=== PATIENT | male | born 1940 | race Caucasian/White ===

== ENCOUNTER 2016-10-20 09:30 | Day surgery (SDC) | payer OTHER ==
[2016-10-14 13:23] VITALS: BMI 24.2
[2016-10-20] MEDS ORDERED: MIDAZOLAM HCL 2 MG/2 ML SINGLE DOSE VIAL ONE (10:37)
[2016-10-20] MEDS ORDERED: PROPOFOL 20 ML ONE (10:39)
[2016-10-20 13:15] VITALS: TEMP 97.8
[2016-10-20] MEDS ORDERED: LACTATED RINGERS SOLUTION 1,000 ML IV SCH (13:30)
[2016-10-20] MEDS ORDERED: ONDANSETRON 4 MG/2 ML VIAL IVPUSH PRN (13:54)
[2016-10-20] MEDS ORDERED: oxyCODONE HCL 5 MG TABLET PO PRN (13:54)
[2016-10-20 14:21] VITALS: BP 152/74; PULSE 66
--- NOTE | 2016-10-21 10:09 | OP ---
DATE OF OPERATION: 10/20/2016 PREOPERATIVE DIAGNOSIS: Left hand, wrist, forearm flexion contractures, severe, status post cerebrovascular accident. POSTOPERATIVE DIAGNOSIS: Left hand, wrist, forearm flexion contractures, severe, status post cerebrovascular accident. OPERATIVE PROCEDURE: 1. Left flexor digitorum superficialis to flexor digitorum profundus tendon transfer and lengthening in the forearm to index finger. 2. Left flexor digitorum superficialis to flexor digitorum profundus tendon transfer and lengthening in the long finger. 3. Left flexor digitorum superficialis to flexor digitorum profundus tendon transfer and lengthening in the ring finger. 4. Left flexor digitorum superficialis to flexor digitorum profundus tendon transfer and lengthening in the small finger. 5. Left flexor pollicis longus tendon lengthening. SURGEON: Peter Quiroz MD VEHICLE CALIBRATION ENGINEER: ZA Mora ANESTHESIA: General. COMPLICATIONS: None. ESTIMATED BLOOD LOSS: Minimal. INDICATIONS FOR PROCEDURE: The patient is a 76-year-old male with history of cerebrovascular accident causing left handed severe contractures in the fingers, which were causing hygienic issues and difficulty for the patient. He was indicated for operative treatment. The risks, benefits, and alternatives were discussed with the patient and at length, and proper informed consent was obtained. PROCEDURE: After proper identification of the patient and the correct operative site, the patient was brought to the operating room and placed supine on the operating room table. All prominences were well padded. General anesthesia was provided by the anesthesiologist adequate for procedure. Left upper extremity was prepped and draped in the usual sterile fashion. Well-padded tourniquet was placed with a sterile prep. Esmarch bandage used to exsanguinate the left upper extremity. Tourniquet inflated to 250 mmHg. A curvilinear incision was made over the volar aspect of the left forarm. Incision was taken sharply through the skin with blunt and sharp dissection of subcutaneous tissues. Median nerve was identified and carefully protected throughout the procedure. This was done after the antebrachial fascia was divided. At this point, the flexor digitorum superficialis tendons to the index, long, ring, and small fingers were identified and were sutured together at the distal aspect. They were then divided distal to the sutures. These were then elevated, and the profundus tendons were identified to the index, long, ring, and small fingers. These were sutured together just distal to the musculotendinous junctions of these tendons, and then divided at the musculotendinous junction. The fingers were then extended, and the tendons were lengthened. Then, the superficialis tendon proximal stump was sutured to the profundus tendon distally. The flexor pollicis longus tendon was also then divided at the musculotendinous junction and sutured to the tendons that had previously been approximated. This allowed all the fingers to be opened out of the palm. Wound was irrigated with saline and repaired with 4-0 Vicryl and 4-0 nylon sutures. Sterile dressings were applied. Splint was placed with the fingers extended. There were no skin wounds. Joy Bruno, the product development assistant, was integral throughout this procedure. The procedure could not have been performed without a skilled operative product development assistant. Brice [id number]
== END 2016-10-20 14:35 | disposition home or self-care (01) ==
LOC: FASU 09:30
PROVIDERS: ATTEND Orthopaedic Surgery Hand Surgery
PROC: 0L880ZZ Division of Left Hand Tendon, Open Approach (ICD-10-PCS; 2016-10-20)
PROC: 0LX60ZZ Transfer Left Lower Arm and Wrist Tendon, Open Approach (ICD-10-PCS; principal; 2016-10-20 11:44)
DX: M24.542 Contracture, left hand (principal); M24.532 Contracture, left wrist; M21.232 Flexion deformity, left wrist; I69.398 Other sequelae of cerebral infarction
CPT/HCPCS: 87081; 94760

== ENCOUNTER 2017-06-27 06:28 | Day surgery (SDC) | payer OTHER ==
[2017-06-21 13:15] VITALS: BMI 24.0
[2017-06-27] MEDS ORDERED: LIDOCAINE 1% P/F 10 MG/ML VIAL ONE (07:06)
[2017-06-27] MEDS ORDERED: TETRACAINE 0.5% OPHTH SOLN 2 ML BOTTLE ONE ×2 (07:06→07:09)
[2017-06-27] MEDS ORDERED: BSS (NA/CA/MG/K) BALANCED SALT SOLUTION OPHTH SOLN 15 ML BOTTLE ONE (07:07)
[2017-06-27] MEDS ORDERED: CARBACHOL 0.01% INTRA-OCULAR 1.5 ML VIAL ONE (07:07)
[2017-06-27] MEDS ORDERED: ACETYLCHOLINE 1:100 INTRA-OCUL 20 MG/2 ML KIT ONE (07:07)
[2017-06-27] MEDS ORDERED: NEO/POLYMYX B SULF/DEXAMETH OPHTHALMIC 5ML BOTTLE ONE (07:07)
[2017-06-27] MEDS ORDERED: LIDOCAINE HCL 2% JELLY 10 ML CARTRIDGE ONE (07:08)
[2017-06-27] MEDS: CYCLOPENTOLATE 2% OPHTH SOLN 2 ML BOTTLE ONE ×3 (07:20→07:30)
[2017-06-27] MEDS: PHENYLEPHRINE 2.5% OPHTH SOLN 15 ML BOTTLE ONE ×3 (07:20→07:30)
[2017-06-27] MEDS: TROPICAMIDE 1% OPHTH SOLN 15 ML BOTTLE ONE ×3 (07:20→07:30)
[2017-06-27] MEDS: CIPROFLOXACIN 0.3% EYE DROPS 5 ML BOTTLE ONE ×3 (07:20→07:30)
[2017-06-27] MEDS ORDERED: EPINEPHrine 1:1,000 1 MG/1 ML - 30ML VIAL (INJECTION) ONE (07:27)
[2017-06-27] MEDS ORDERED: MIDAZOLAM HCL 2 MG/2 ML SINGLE DOSE VIAL ONE (08:00)
[2017-06-27 08:37] VITALS: TEMP 97.5
[2017-06-27 09:06] VITALS: BP 140/72; PULSE 65
--- NOTE | 2017-06-27 11:21 | OP ---
DATE OF OPERATION: 06/27/2017 OPERATIVE PROCEDURE: Lens phacoemulsification with posterior chamber intraocular lens placement, right eye PREOPERATIVE DIAGNOSIS: Visually significant cataract of right eye. POSTOPERATIVE DIAGNOSIS: Visually significant cataract of right eye. SURGEON: Josh Jones M.D. ANESTHESIA: MAC PROCEDURE: The patient was brought to the operating room and placed under monitored anesthesia care by Anesthesia. A drop of Tetracaine was then placed over the right eye. The patient was then prepped and draped in the usual sterile manner. A speculum was then placed over the right eye. The eye was then well irrigated with copious amounts of BSS (balanced salt solution). The operating microscope was then moved into position. A paracentesis was performed using a 15 degree blade. At this point 0.5 mL of 1% preservative free-lidocaine was injected into the anterior chamber. Amvisc plus was then injected into the anterior chamber. A clear corneal incision was then formed using a 2.2 mm keratome. A capsulorrhexis was then performed in a continuous circular fashion beginning with a cystotome completed with an Utratas forceps. Hydrodissection was then performed using BSS on a cannula. The phaco probe was then introduced through the corneal wound and the cataract was removed using the phaco chop technique. Approximately 3 seconds of absolute phaco time was used. The remaining cortex was then removed using irrigation and aspiration with an I/A probe. The capsule was then filled with regular Amvisc and the capsule was noted to be intact. A previously selected foldable posterior chamber intraocular lens was then injected into the capsule through the corneal wound using a lens injector. It was then dialed into position using a Sinskey hook. The Amvisc was then removed using irrigation and aspiration. Miostat was then injected through the paracentesis to constrict the pupil. The paracentesis and corneal wound were then hydrated and noted to be water tight. A drop of Maxitrol was then placed over the eye. The speculum was removed and clear shield was taped over the eye. The patient tolerated the procedure well and there were no surgical complications. The patient was asked to follow up in my office the next day. JOSH JONES M.D. [id number]
== END 2017-06-27 09:10 | disposition home or self-care (01) ==
LOC: FASU 06:28
PROVIDERS: ATTEND Ophthalmology
PROC: 08RJ3JZ Replacement of Right Lens with Synthetic Substitute, Percutaneous Approach (ICD-10-PCS; principal; 2017-06-27 08:11)
DX: H26.8 Other specified cataract (principal)
CPT/HCPCS: 82962

== ENCOUNTER 2022-04-19 11:41 | Inpatient (IN) | payer OTHER ==
[2022-04-19 13:55] LABS: EPI CELLS 18 /uL (0-25.1); HYALINE CASTS 2 /uL (0-3.1); PH,URINE 5.5 (5.0-8.0); URINE APPEARANCE CLOUDY; URINE BACTERIA 23 /uL (0-1359); URINE BILIRUBIN NEGATIVE (NEGATIVE); URINE COLOR DK YELLOW; URINE GLUCOSE (UA) NEGATIVE (NEGATIVE); URINE KETONE TRACE (NEGATIVE); URINE LEUK ESTERASE NEGATIVE (NEGATIVE); URINE NITRITE NEGATIVE (NEGATIVE); URINE PROTEIN 4+ (NEGATIVE); URINE RBC 33 /uL (0-23.9); URINE WBC 28 /uL (0-25.8)
[2022-04-19 13:58] LABS: BASO % 0.2 % (0-2.0); HEMATOCRIT 47.7 % (35.4-49); HEMOGLOBIN 16.2 GM/dL (11.7-16.9); LYMPH % 3.5 % (8-40); MCH 29.7 pg (25.7-33.7); MEAN CELL VOLUME 87.3 fl (80-96); MEAN PLT VOLUME 9.4 fl (7.5-11.1); MONO % 9.7 % (3.8-10.2); NEUT % 86.6 % (42.8-82.8); PLATELET COUNT 237 10^3/uL (134-434); RBC 5.46 M/mm3 (4.00-5.60); RDW 14.2 % (11.9-15.9); WHITE BLOOD COUNT 8.7 K/mm3 (4.0-10.0)
[2022-04-19 14:12] LABS: CHLORIDE 100 mmol/L (98-107); SODIUM 140 mmol/L (136-145)
[2022-04-19 14:14] LABS: ANION GAP 15 MMOL/L (8-16); CALCIUM 9.5 mg/dL (8.5-10.1); CO2 25 mmol/L (21-32)
[2022-04-19 14:15] LABS: BLOOD UREA NITROGEN 35.3 mg/dL (7-18)
[2022-04-19 14:16] LABS: GLUCOSE,RANDOM 62 mg/dL (74-106)
[2022-04-19 14:18] LABS: SGOT/AST 103 U/L (15-37); SGPT/ALT 38 U/L (13-61)
[2022-04-19 14:19] LABS: BILIRUBIN,TOTAL 0.4 mg/dL (0.2-1); CREATININE 1.7 mg/dL (0.55-1.3); TOT PROT 7.1 g/dl (6.4-8.2)
[2022-04-19 14:20] LABS: ALK PHOS 79 U/L (45-117)
[2022-04-19] MEDS ORDERED: ACETAMINOPHEN 1000 MG/100 ML BAG IVPB ONE (15:06)
[2022-04-19] MEDS ORDERED: ACETAMINOPHEN INJECTION 100 ML IVPB ONE (15:06)
[2022-04-19] MEDS ORDERED: SODIUM CHLORIDE 0.9% 500 ML INFUS.BAG IV ONE (15:06)
[2022-04-19] MEDS ORDERED: ASPIRIN 81 MG CHEWABLE TABLETS PO ONE (15:06)
[2022-04-19] MEDS ORDERED: ASPIRIN 81 MG CHEWABLE TABLETS ONE ×2 (15:06→15:07)
[2022-04-19] MEDS ORDERED: ASPIRIN 300 MG SUPP.RECT PR ONE (15:20)
[2022-04-19] MEDS ORDERED: ASPIRIN 300 MG SUPP.RECT RC ONE (15:33)
[2022-04-19] MEDS ORDERED: DEXTROSE 50%-WATER - 25 GM/50 ML VIAL IVPUSH ONE ×4 (16:59→22:22)
[2022-04-19] MEDS ORDERED: DEXTROSE 50%-WATER 25 GM/50 ML DISP.SYRIN ONE ×2 (17:05→20:40)
[2022-04-19] MEDS ORDERED: DEXAMETHASONE SOD PHOSPHATE 10 MG/1 ML VIAL IVPUSH ONE (20:19)
[2022-04-19] MEDS ORDERED: DEXAMETHASONE SOD PHOSPHATE 10 MG/1 ML VIAL ONE (20:37)
[2022-04-19] MEDS ORDERED: DEXTROSE 5%-WATER - 1,000 ML IV SCH ×2 (21:00→22:23)
[2022-04-19 21:42] LABS: MAGNESIUM 2.1 mg/dL (1.8-2.4)
[2022-04-19 21:50] LABS: LDH 337 U/L (87-246)
[2022-04-19] MEDS ORDERED: MUPIROCIN 2% TOPICAL OINTMENT FOR DECOLONIZATION NS SCH (22:30)
[2022-04-20 08:05] LABS: HEMATOCRIT 41.4 % (35.4-49); HEMOGLOBIN 14.3 GM/dL (11.7-16.9); MCH 29.7 pg (25.7-33.7); MCHC 34.6 g/dl (32.0-35.9); MEAN PLT VOLUME 9.3 fl (7.5-11.1); PLATELET COUNT 211 10^3/uL (134-434); RBC 4.81 M/mm3 (4.00-5.60); RDW 14.3 % (11.9-15.9); WHITE BLOOD COUNT 6.3 K/mm3 (4.0-10.0)
[2022-04-20 08:35] LABS: CALCIUM 8.6 mg/dL (8.5-10.1)
[2022-04-20 08:37] LABS: ALBUMIN 2.6 g/dl (3.4-5.0); BLOOD UREA NITROGEN 38.5 mg/dL (7-18)
[2022-04-20 08:39] LABS: CREATININE 1.4 mg/dL (0.55-1.3)
[2022-04-20 08:41] LABS: BILIRUBIN,TOTAL 0.3 mg/dL (0.2-1); TOT PROT 6.2 g/dl (6.4-8.2)
[2022-04-20] MEDS ORDERED: DEXTROSE 5%-WATER - 1,000 ML IV SCH (09:35)
[2022-04-20 09:58] LABS: ANISOCYTOSIS 0; HELMET CELLS 0; HOWELL-JOLLY BODIES 0; MACROCYTOSIS 0; OVALOCYTE 0; ROULEAU 0; SICKELED CELLS 0; TARGET CELLS 0; TEAR DROP CELLS 0; TOXIC GRANULATION 0
[2022-04-20] MEDS ORDERED: DEXAMETHASONE SOD PHOSPHATE 4 MG/1 ML VIAL IVPUSH SCH ×2 (10:00)
[2022-04-20] MEDS: ENOXAPARIN NA (PORCINE) 30 MG/0.3 ML DISP.SYRIN SQ SCH (15:39)
[2022-04-20] MEDS ORDERED: INSULIN SLIDING SCALE (NOVOLOG) 1 VIAL SQ SCH (16:30)
[2022-04-20] MEDS: INSULIN SLIDING SCALE (NOVOLOG) 1 VIAL SQ SCH ×2 (18:05→21:22)
[2022-04-20] MEDS ORDERED: CHLORHEXIDINE GLUCONATE 4% CLEANSER FOR DECOLONIZATION TP SCH (22:00)
[2022-04-21] MEDS: INSULIN SLIDING SCALE (NOVOLOG) 1 VIAL SQ SCH ×4 (06:37→21:48)
[2022-04-21] MEDS ORDERED: ENOXAPARIN NA (PORCINE) 30 MG/0.3 ML DISP.SYRIN SQ SCH (10:00)
[2022-04-21] MEDS: DEXAMETHASONE SOD PHOSPHATE 4 MG/1 ML VIAL IVPUSH SCH (10:29)
[2022-04-21] MEDS: ENOXAPARIN NA (PORCINE) 30 MG/0.3 ML DISP.SYRIN SQ SCH (10:29)
[2022-04-21 16:09] VITALS: BMI 23.5
[2022-04-22] MEDS: INSULIN SLIDING SCALE (NOVOLOG) 1 VIAL SQ SCH ×4 (06:34→22:17)
[2022-04-22 08:24] LABS: ALBUMIN 2.4 g/dl (3.4-5.0); BLOOD UREA NITROGEN 42.4 mg/dL (7-18); CALCIUM 8.9 mg/dL (8.5-10.1)
[2022-04-22 08:28] LABS: BILIRUBIN,TOTAL 0.4 mg/dL (0.2-1); CREATININE 1.3 mg/dL (0.55-1.3)
[2022-04-22] MEDS: DEXAMETHASONE SOD PHOSPHATE 4 MG/1 ML VIAL IVPUSH SCH (10:16)
[2022-04-22] MEDS: ENOXAPARIN NA (PORCINE) 30 MG/0.3 ML DISP.SYRIN SQ SCH (10:17)
[2022-04-22] MEDS: ASPIRIN COATED 81 MG TABLET.EC PO SCH (12:29)
[2022-04-22] MEDS ORDERED: amLODIPine BESYLATE 5 MG TABLET (FP) PO ONE (22:56)
[2022-04-23] MEDS: INSULIN SLIDING SCALE (NOVOLOG) 1 VIAL SQ SCH ×4 (06:41→21:46)
[2022-04-23] MEDS: DEXAMETHASONE SOD PHOSPHATE 4 MG/1 ML VIAL IVPUSH SCH (10:54)
[2022-04-23] MEDS: CLOPIDOGREL BISULFATE 75 MG TABLET (FP) PO SCH (10:55)
[2022-04-23] MEDS: ENOXAPARIN NA (PORCINE) 30 MG/0.3 ML DISP.SYRIN SQ SCH (10:55)
[2022-04-23] MEDS: ASPIRIN COATED 81 MG TABLET.EC PO SCH (10:55)
[2022-04-23] MEDS: RAMIPRIL 5 MG CAPSULE PO SCH (10:56)
[2022-04-23] MEDS: metoPROLOL SUCCINATE 25 MG TAB.SR.24H (FP) PO SCH (10:56)
[2022-04-23] MEDS ORDERED: INSULIN (NOVOLOG) ASPART 100 UNITS/ML 10ML VIAL ONE ×2 (12:21→21:38)
[2022-04-23] MEDS ORDERED: metoPROLOL SUCCINATE 25 MG TAB.SR.24H (FP) PO ONE (13:50)
[2022-04-24] MEDS: INSULIN SLIDING SCALE (NOVOLOG) 1 VIAL SQ SCH ×5 (06:27→21:18)
[2022-04-24] MEDS: RAMIPRIL 5 MG CAPSULE PO SCH (09:36)
[2022-04-24] MEDS: ASPIRIN COATED 81 MG TABLET.EC PO SCH (09:36)
[2022-04-24] MEDS: DEXAMETHASONE SOD PHOSPHATE 4 MG/1 ML VIAL IVPUSH SCH (09:36)
[2022-04-24] MEDS: CLOPIDOGREL BISULFATE 75 MG TABLET (FP) PO SCH (09:36)
[2022-04-24] MEDS: metoPROLOL SUCCINATE 25 MG TAB.SR.24H (FP) PO SCH (09:36)
[2022-04-24] MEDS: ENOXAPARIN NA (PORCINE) 30 MG/0.3 ML DISP.SYRIN SQ SCH (09:36)
[2022-04-24] MEDS ORDERED: INSULIN (NOVOLOG) ASPART 100 UNITS/ML 10ML VIAL ONE ×2 (10:52→21:14)
[2022-04-25] MEDS: INSULIN SLIDING SCALE (NOVOLOG) 1 VIAL SQ SCH ×4 (06:25→23:13)
[2022-04-25] MEDS: RAMIPRIL 5 MG CAPSULE PO SCH (10:27)
[2022-04-25] MEDS: ASPIRIN COATED 81 MG TABLET.EC PO SCH (10:27)
[2022-04-25] MEDS: DEXAMETHASONE SOD PHOSPHATE 4 MG/1 ML VIAL IVPUSH SCH (10:28)
[2022-04-25] MEDS: CLOPIDOGREL BISULFATE 75 MG TABLET (FP) PO SCH (10:28)
[2022-04-25] MEDS: ENOXAPARIN NA (PORCINE) 30 MG/0.3 ML DISP.SYRIN SQ SCH (10:30)
[2022-04-25] MEDS ORDERED: metoPROLOL SUCCINATE 25 MG TAB.SR.24H (FP) PO SCH (11:40)
[2022-04-25] MEDS ORDERED: INSULIN (NOVOLOG) ASPART 100 UNITS/ML 10ML VIAL ONE (12:08)
[2022-04-25] MEDS ORDERED: INSULIN (LEVEMIR) 100 UNITS/ML UNITS SQ ONE (17:04)
[2022-04-26] MEDS: INSULIN SLIDING SCALE (NOVOLOG) 1 VIAL SQ SCH ×4 (06:47→21:03)
[2022-04-26] MEDS: DEXAMETHASONE SOD PHOSPHATE 4 MG/1 ML VIAL IVPUSH SCH (10:03)
[2022-04-26] MEDS: ENOXAPARIN NA (PORCINE) 30 MG/0.3 ML DISP.SYRIN SQ SCH (10:03)
[2022-04-26] MEDS: ASPIRIN COATED 81 MG TABLET.EC PO SCH (10:03)
[2022-04-26] MEDS: CLOPIDOGREL BISULFATE 75 MG TABLET (FP) PO SCH (10:03)
[2022-04-26] MEDS: RAMIPRIL 5 MG CAPSULE PO SCH (10:04)
[2022-04-26] MEDS ORDERED: INSULIN (NOVOLOG) ASPART 100 UNITS/ML 10ML VIAL ONE ×2 (11:53→20:09)
[2022-04-26 16:45] LABS: CALCIUM 8.9 mg/dL (8.5-10.1)
[2022-04-26 16:46] LABS: ALBUMIN 2.4 g/dl (3.4-5.0); BLOOD UREA NITROGEN 39.1 mg/dL (7-18)
[2022-04-26 16:49] LABS: CREATININE 1.4 mg/dL (0.55-1.3)
[2022-04-26 16:51] LABS: BILIRUBIN,TOTAL 0.3 mg/dL (0.2-1)
[2022-04-27] MEDS ORDERED: INSULIN (NOVOLOG) ASPART 100 UNITS/ML 10ML VIAL ONE (05:53)
[2022-04-27] MEDS: INSULIN SLIDING SCALE (NOVOLOG) 1 VIAL SQ SCH ×4 (08:00→21:40)
[2022-04-27] MEDS: CLOPIDOGREL BISULFATE 75 MG TABLET (FP) PO SCH (10:08)
[2022-04-27] MEDS: DEXAMETHASONE SOD PHOSPHATE 4 MG/1 ML VIAL IVPUSH SCH (10:08)
[2022-04-27] MEDS: ENOXAPARIN NA (PORCINE) 30 MG/0.3 ML DISP.SYRIN SQ SCH (10:08)
[2022-04-27] MEDS: RAMIPRIL 5 MG CAPSULE PO SCH (10:08)
[2022-04-27] MEDS: ASPIRIN COATED 81 MG TABLET.EC PO SCH (10:20)
[2022-04-27 10:34] VITALS: RESP 18
[2022-04-27] MEDS: INSULIN (LEVEMIR) 100 UNITS/ML UNITS SQ SCH (21:41)
[2022-04-28] MEDS: INSULIN SLIDING SCALE (NOVOLOG) 1 VIAL SQ SCH ×4 (06:28→21:31)
[2022-04-28] MEDS: ASPIRIN COATED 81 MG TABLET.EC PO SCH (11:22)
[2022-04-28] MEDS: RAMIPRIL 5 MG CAPSULE PO SCH (11:23)
[2022-04-28] MEDS: DEXAMETHASONE SOD PHOSPHATE 4 MG/1 ML VIAL IVPUSH SCH (11:23)
[2022-04-28] MEDS: CLOPIDOGREL BISULFATE 75 MG TABLET (FP) PO SCH (11:25)
[2022-04-28 20:15] VITALS: BP 119/57; PULSE 65; TEMP 97.3
[2022-04-28] MEDS ORDERED: INSULIN (NOVOLOG) ASPART 100 UNITS/ML 10ML VIAL ONE (21:23)
[2022-04-28] MEDS: INSULIN (LEVEMIR) 100 UNITS/ML UNITS SQ SCH (21:33)
[2022-04-29] MEDS: INSULIN SLIDING SCALE (NOVOLOG) 1 VIAL SQ SCH (06:15)
[2022-04-29] MEDS: ASPIRIN COATED 81 MG TABLET.EC PO SCH (10:03)
[2022-04-29] MEDS: CLOPIDOGREL BISULFATE 75 MG TABLET (FP) PO SCH (10:05)
[2022-04-29] MEDS: RAMIPRIL 5 MG CAPSULE PO SCH (10:05)
== END 2022-04-29 11:09 | DRG 177 ==
LOC: JER 11:41 → JERBED 16:32 → JICU 23:56 → J6S 04-22 23:36
PROVIDERS: ADMIT Internal Medicine; ATTEND Internal Medicine
DX: U07.1 COVID-19 (principal); I21.4 Non-ST elevation (NSTEMI) myocardial infarction; G81.94 Hemiplegia, unspecified affecting left nondominant side; I24.8 Other forms of acute ischemic heart disease; N17.9 Acute kidney failure, unspecified; F03.90 Unspecified dementia, unspecified severity, without behavioral disturbance, psychotic disturbance, mood disturbance, and anxiety; E11.649 Type 2 diabetes mellitus with hypoglycemia without coma; R29.6 Repeated falls; I25.119 Atherosclerotic heart disease of native coronary artery with unspecified angina pectoris; E78.00 Pure hypercholesterolemia, unspecified; H91.93 Unspecified hearing loss, bilateral; I12.9 Hypertensive chronic kidney disease with stage 1 through stage 4 chronic kidney disease, or unspecified chronic kidney disease; E11.22 Type 2 diabetes mellitus with diabetic chronic kidney disease; N18.9 Chronic kidney disease, unspecified; Z95.5 Presence of coronary angioplasty implant and graft
CPT/HCPCS: 0241U-QW; 36415; 70450-TC; 71045-TC-FY; 80053; 81003; 82728; 82962; 83615; 83735; 84484; 85025; 86140; 87081; 87086; 93005; 93010; 97116-GP; 97161-GP; 99291; C9803-CS; J1100; U0003; U0005

== ENCOUNTER 2022-05-04 14:48 | Inpatient (IN) | payer OTHER ==
[2022-05-04] MEDS ORDERED: SODIUM CHLORIDE 0.9% 500 ML INFUS.BAG IV ONE ×2 (15:54→19:21)
[2022-05-04 16:30] LABS: BASO % 0.3 % (0-2.0); EOS % 0.1 % (0-4.5); HEMATOCRIT 45.6 % (35.4-49); HEMOGLOBIN 14.4 GM/dL (11.7-16.9); LYMPH % 3.9 % (8-40); MCH 28.2 pg (25.7-33.7); MCHC 31.6 g/dl (32.0-35.9); MEAN CELL VOLUME 89.2 fl (80-96); MEAN PLT VOLUME 9.8 fl (7.5-11.1); NEUT % 89.7 % (42.8-82.8); PLATELET COUNT 272 10^3/uL (134-434); RDW 15.4 % (11.9-15.9); WHITE BLOOD COUNT 16.5 K/mm3 (4.0-10.0)
[2022-05-04 16:32] LABS: VENOUS BASE EXCESS -9.6 mmol/L (-2-2); VENOUS O2 SATURATION 53.2 % (70-80); VENOUS PCO2 40.3 mmHg (38-52); VENOUS PH 7.247 (7.310-7.410)
[2022-05-04 16:37] LABS: INR 1.61 (0.83-1.09); PROTHROMBIN TIME (PATIENT) 18.6 SEC (9.7-13.0)
[2022-05-04 16:40] LABS: ACTIVATED PTT 31.6 SECONDS (25.2-36.5)
[2022-05-04] MEDS ORDERED: CEFEPIME HCL/D5W 1 GM/50 ML BAG IVPB ONE (16:45)
[2022-05-04] MEDS ORDERED: VANCOMYCIN 1 GM in D5W (PRE-DOCKED) 1,000 MG/250 ML IVPB ONE (16:46)
[2022-05-04 17:02] LABS: CHLORIDE 107 mmol/L (98-107); SODIUM 144 mmol/L (136-145)
[2022-05-04] MEDS ORDERED: CEFEPIME 1 GM/100 ML BAG IVPB ONE (17:02)
[2022-05-04] MEDS ORDERED: VANCOMYCIN/WATER FOR INJ (PEG) 1,000 MG/200 ML BAG IVPB ONE (17:02)
[2022-05-04 17:03] LABS: CALCIUM 8.8 mg/dL (8.5-10.1)
[2022-05-04 17:04] LABS: ANION GAP 22 MMOL/L (8-16); CO2 15 mmol/L (21-32); GLUCOSE,RANDOM 300 mg/dL (74-106)
[2022-05-04 17:07] LABS: CREATININE 4.2 mg/dL (0.55-1.3); SGOT/AST 302 U/L (15-37); SGPT/ALT 196 U/L (13-61)
[2022-05-04] MEDS ORDERED: SODIUM CHLORIDE 1,000 ML IV ONE (17:07)
[2022-05-04 17:09] LABS: BILIRUBIN,TOTAL 0.7 mg/dL (0.2-1); TOT PROT 6.6 g/dl (6.4-8.2)
[2022-05-04 17:14] LABS: LACTIC ACID 8.2 mmol/L (0.4-2.0)
[2022-05-04 17:14] LABS: ALBUMIN 1.8 g/dl (3.4-5.0); ALK PHOS 125 U/L (45-117); BLOOD UREA NITROGEN 111.4 mg/dL (7-18)
[2022-05-04 17:42] LABS: EPI CELLS 3 /uL (0-25.1); HYALINE CASTS 1809 /uL (0-3.1); PH,URINE >= 9.0 (5.0-8.0); URINE APPEARANCE TURBID; URINE BACTERIA 1505 /uL (0-1359); URINE BILIRUBIN NEGATIVE (NEGATIVE); URINE COLOR RED; URINE GLUCOSE (UA) NEGATIVE (NEGATIVE); URINE KETONE Error (NEGATIVE); URINE LEUK ESTERASE NEGATIVE (NEGATIVE); URINE NITRITE POSITIVE (NEGATIVE); URINE PROTEIN NEGATIVE (NEGATIVE); URINE UROBILINOGEN 0.2 mg/dL (0.2-1.0)
[2022-05-04 19:05] LABS: URINE RBC 310.4 /uL (0-23.9); URINE WBC 952.2 /uL (0-25.8)
[2022-05-04] MEDS ORDERED: PIPERACILLIN/TAZOB 2.25 GM 2.25 GM in DEXTROSE 5%-WATER - 50 ML IVPB SCH (22:30)
[2022-05-04] MEDS ORDERED: SODIUM CHLORIDE 1,000 ML IV SCH (22:30)
[2022-05-04] MEDS: PIPERACILLIN/TAZOB 2.25 GM 2.25 GM in DEXTROSE 5%-WATER - 50 ML IVPB SCH (23:22)
[2022-05-04] MEDS: CHLORHEXIDINE GLUCONATE 4% CLEANSER FOR DECOLONIZATION TP SCH (23:22)
[2022-05-05] MEDS: INSULIN SLIDING SCALE (NOVOLOG) 1 VIAL SQ SCH ×5 (00:03→23:12)
[2022-05-05] MEDS: MUPIROCIN 2% TOPICAL OINTMENT FOR DECOLONIZATION NS SCH ×3 (00:05→22:05)
[2022-05-05 00:12] LABS: BASO % 0.1 % (0-2.0); EOS % 0.1 % (0-4.5); HEMATOCRIT 42.2 % (35.4-49); HEMOGLOBIN 13.4 GM/dL (11.7-16.9); LYMPH % 4.5 % (8-40); MCH 28.4 pg (25.7-33.7); MCHC 31.6 g/dl (32.0-35.9); MEAN CELL VOLUME 89.9 fl (80-96); MEAN PLT VOLUME 9.2 fl (7.5-11.1); MONO % 6.2 % (3.8-10.2); NEUT % 89.1 % (42.8-82.8); PLATELET COUNT 171 10^3/uL (134-434); RDW 15.5 % (11.9-15.9); WHITE BLOOD COUNT 11.7 K/mm3 (4.0-10.0)
[2022-05-05 00:32] LABS: CHLORIDE 115 mmol/L (98-107); SODIUM 149 mmol/L (136-145)
[2022-05-05 00:34] LABS: ALBUMIN 1.5 g/dl (3.4-5.0); ANION GAP 15 MMOL/L (8-16); CO2 18 mmol/L (21-32); GLUCOSE,RANDOM 231 mg/dL (74-106); MAGNESIUM 2.8 mg/dL (1.8-2.4)
[2022-05-05 00:37] LABS: CREATININE 3.8 mg/dL (0.55-1.3); PHOSPHOROUS 6.1 mg/dL (2.5-4.9); SGPT/ALT 607 U/L (13-61)
[2022-05-05 00:37] LABS: EPI CELLS >36 /uL (0-25.1); HYALINE CASTS 686 /uL (0-3.1); URINE APPEARANCE TURBID; URINE BACTERIA 1851 /uL (0-1359); URINE BILIRUBIN 2+ (NEGATIVE); URINE COLOR RED; URINE GLUCOSE (UA) TRACE (NEGATIVE); URINE KETONE NEGATIVE (NEGATIVE); URINE LEUK ESTERASE 3+ (NEGATIVE); URINE NITRITE POSITIVE (NEGATIVE); URINE PROTEIN 3+ (NEGATIVE); URINE UROBILINOGEN 0.2 mg/dL (0.2-1.0); URINE WBC 13491 /uL (0-25.8)
[2022-05-05 00:39] LABS: BILIRUBIN,TOTAL 0.5 mg/dL (0.2-1); TOT PROT 5.6 g/dl (6.4-8.2)
[2022-05-05 00:40] LABS: ALK PHOS 112 U/L (45-117)
[2022-05-05] MEDS ORDERED: SODIUM CHLORIDE 0.45% 1,000 ML IV SCH (01:00)
[2022-05-05 01:17] LABS: BLOOD UREA NITROGEN 112.4 mg/dL (7-18); LACTIC ACID 3.4 mmol/L (0.4-2.0); SGOT/AST 1217 U/L (15-37)
[2022-05-05] MEDS ORDERED: HEPARIN NA (PORCINE) 5,000 UNITS/ML 1ML VIAL IVPUSH PRN ×4 (01:24→01:26)
[2022-05-05] MEDS ORDERED: HEPARIN NA (PORCINE) 5,000 UNITS/ML 1ML VIAL IVPUSH ONE (01:26)
[2022-05-05] MEDS: HEPARIN INFUSION - 25,000 UNITS/500 ML INFUS.BAG IVPB SCH (01:49)
[2022-05-05] MEDS: PIPERACILLIN/TAZOB 2.25 GM 2.25 GM in DEXTROSE 5%-WATER - 50 ML IVPB SCH ×3 (03:41→16:43)
[2022-05-05] MEDS: OFLOXACIN 0.3% OPHTHALMIC SOLUTION 5 ML BOTTLE OU SCH ×5 (06:20→22:10)
[2022-05-05 07:18] LABS: URINE RBC 6180.5 /uL (0-23.9)
[2022-05-05 08:55] LABS: BASO % 0.1 % (0-2.0); EOS % 0.4 % (0-4.5); HEMATOCRIT 44.2 % (35.4-49); HEMOGLOBIN 14.1 GM/dL (11.7-16.9); LYMPH % 5.7 % (8-40); MCH 28.5 pg (25.7-33.7); MCHC 31.9 g/dl (32.0-35.9); MEAN CELL VOLUME 89.4 fl (80-96); MEAN PLT VOLUME 9.3 fl (7.5-11.1); MONO % 5.9 % (3.8-10.2); NEUT % 87.9 % (42.8-82.8); PLATELET COUNT 152 10^3/uL (134-434); RBC 4.94 M/mm3 (4.00-5.60); RDW 15.9 % (11.9-15.9); WHITE BLOOD COUNT 9.4 K/mm3 (4.0-10.0)
[2022-05-05 08:58] LABS: INR 1.82 (0.83-1.09); PROTHROMBIN TIME (PATIENT) 21.1 SEC (9.7-13.0)
[2022-05-05 09:01] LABS: ACTIVATED PTT 50.5 SECONDS (25.2-36.5)
[2022-05-05 09:10] LABS: CHLORIDE 115 mmol/L (98-107); SODIUM 148 mmol/L (136-145)
[2022-05-05 09:13] LABS: ANION GAP 14 MMOL/L (8-16); CALCIUM 7.9 mg/dL (8.5-10.1); CO2 19 mmol/L (21-32); GLUCOSE,RANDOM 79 mg/dL (74-106); MAGNESIUM 2.7 mg/dL (1.8-2.4)
[2022-05-05 09:14] LABS: ALBUMIN 1.6 g/dl (3.4-5.0)
[2022-05-05 09:16] LABS: CREATININE 3.3 mg/dL (0.55-1.3); SGPT/ALT 634 U/L (13-61)
[2022-05-05 09:18] LABS: BILIRUBIN,TOTAL 0.5 mg/dL (0.2-1); TOT PROT 5.8 g/dl (6.4-8.2)
[2022-05-05 09:19] LABS: ALK PHOS 111 U/L (45-117)
[2022-05-05 09:30] LABS: BLOOD UREA NITROGEN 111.4 mg/dL (7-18); SGOT/AST 1065 U/L (15-37)
[2022-05-05] MEDS: PANTOPRAZOLE SODIUM 40 MG VIAL IVPUSH SCH (09:51)
[2022-05-05] MEDS ORDERED: DEXTROSE 50%-WATER 25 GM/50 ML DISP.SYRIN ONE ×2 (11:12→17:00)
[2022-05-05] MEDS ORDERED: DEXTROSE 50%-WATER - 25 GM/50 ML VIAL IVPUSH ONE (11:30)
[2022-05-05] MEDS ORDERED: DEXTROSE 50%-WATER 25 GM/50 ML DISP.SYRIN IVPUSH ONE (17:05)
[2022-05-05] MEDS: DEXTROSE 5%-WATER - 1,000 ML IV SCH (18:59)
[2022-05-05] MEDS ORDERED: VANCOMYCIN/WATER FOR INJ (PEG) 1,000 MG/200 ML BAG IVPB ONE (19:00)
[2022-05-05] MEDS: CEFEPIME 1 GM in DEXTROSE 5%-WATER 100 ML IVPB SCH (19:20)
[2022-05-05] MEDS: CHLORHEXIDINE GLUCONATE 4% CLEANSER FOR DECOLONIZATION TP SCH (22:15)
[2022-05-06] MEDS: HEPARIN INFUSION - 25,000 UNITS/500 ML INFUS.BAG IVPB SCH (01:30)
[2022-05-06] MEDS: INSULIN SLIDING SCALE (NOVOLOG) 1 VIAL SQ SCH ×4 (05:57→23:20)
[2022-05-06] MEDS: OFLOXACIN 0.3% OPHTHALMIC SOLUTION 5 ML BOTTLE OU SCH ×5 (05:58→21:20)
[2022-05-06 08:31] LABS: HEMATOCRIT 41.7 % (35.4-49); HEMOGLOBIN 13.3 GM/dL (11.7-16.9); MCH 28.2 pg (25.7-33.7); MEAN CELL VOLUME 88.3 fl (80-96); MEAN PLT VOLUME 9.3 fl (7.5-11.1); PLATELET COUNT 158 10^3/uL (134-434); RBC 4.72 M/mm3 (4.00-5.60); WHITE BLOOD COUNT 11.6 K/mm3 (4.0-10.0)
[2022-05-06 08:52] LABS: CALCIUM 7.8 mg/dL (8.5-10.1)
[2022-05-06 08:53] LABS: ALBUMIN 1.5 g/dl (3.4-5.0); BLOOD UREA NITROGEN 86.8 mg/dL (7-18)
[2022-05-06 08:56] LABS: CREATININE 2.6 mg/dL (0.55-1.3); PHOSPHOROUS 4.5 mg/dL (2.5-4.9)
[2022-05-06 08:57] LABS: BILIRUBIN,TOTAL 0.6 mg/dL (0.2-1)
[2022-05-06 08:58] LABS: TOT PROT 5.5 g/dl (6.4-8.2)
[2022-05-06] MEDS: DEXTROSE 5%-WATER - 1,000 ML IV SCH (09:16)
[2022-05-06] MEDS: MUPIROCIN 2% TOPICAL OINTMENT FOR DECOLONIZATION NS SCH ×2 (09:19→21:20)
[2022-05-06] MEDS: PANTOPRAZOLE SODIUM 40 MG VIAL IVPUSH SCH (09:19)
[2022-05-06] MEDS ORDERED: PATIENT'S OWN MEDICATION (NON-FORMULARY) (Metoprolol Tartrate [Lopressor] 100 MG Tablet) PO SCH (10:00)
[2022-05-06] MEDS: KCL 10 MEQ IVPB 10 MEQ/100 ML INFUS.BAG IVPB SCH ×2 (10:07→11:02)
[2022-05-06] MEDS: CLOPIDOGREL BISULFATE 75 MG TABLET (FP) PO SCH (10:07)
[2022-05-06] MEDS: POTASSIUM CHLORIDE 10 MEQ in DEXTROSE 5%-WATER - 1,000 ML IV SCH ×2 (11:01→23:14)
[2022-05-06] MEDS ORDERED: VANCOMYCIN/WATER FOR INJ (PEG) 1,000 MG/200 ML BAG IVPB ONE (15:16)
[2022-05-06] MEDS: AMINO ACIDS/PROTEIN HYDROLYS 30 ML LIQUID.PKT PO SCH (17:12)
[2022-05-06] MEDS: CEFEPIME 1 GM in DEXTROSE 5%-WATER 100 ML IVPB SCH (19:03)
[2022-05-06] MEDS: CHLORHEXIDINE GLUCONATE 4% CLEANSER FOR DECOLONIZATION TP SCH (21:20)
[2022-05-06] MEDS: ASCORBIC ACID 250 MG TABLET (FP) PO SCH (21:20)
[2022-05-07] MEDS: POTASSIUM CHLORIDE 10 MEQ in DEXTROSE 5%-WATER - 1,000 ML IV SCH (03:00)
[2022-05-07] MEDS: INSULIN SLIDING SCALE (NOVOLOG) 1 VIAL SQ SCH ×4 (06:13→20:59)
[2022-05-07 07:36] LABS: HEMATOCRIT 42.2 % (35.4-49); HEMOGLOBIN 13.3 GM/dL (11.7-16.9); MCH 27.7 pg (25.7-33.7); MCHC 31.6 g/dl (32.0-35.9); MEAN CELL VOLUME 87.6 fl (80-96); MEAN PLT VOLUME 9.2 fl (7.5-11.1); PLATELET COUNT 165 10^3/uL (134-434); RBC 4.82 M/mm3 (4.00-5.60); RDW 15.8 % (11.9-15.9); WHITE BLOOD COUNT 11.4 K/mm3 (4.0-10.0)
[2022-05-07 07:59] LABS: ALBUMIN 1.5 g/dl (3.4-5.0); BLOOD UREA NITROGEN 65.8 mg/dL (7-18); CALCIUM 8.2 mg/dL (8.5-10.1)
[2022-05-07 08:04] LABS: BILIRUBIN,TOTAL 0.6 mg/dL (0.2-1); TOT PROT 5.8 g/dl (6.4-8.2)
[2022-05-07] MEDS: AMINO ACIDS/PROTEIN HYDROLYS 30 ML LIQUID.PKT PO SCH ×2 (08:20→17:30)
[2022-05-07] MEDS ORDERED: POTASSIUM CHLORIDE 10 MEQ in DEXTROSE 5%-WATER - 1,000 ML IV SCH (10:56)
[2022-05-07] MEDS: MUPIROCIN 2% TOPICAL OINTMENT FOR DECOLONIZATION NS SCH (11:25)
[2022-05-07] MEDS: MULTIVITAMINS (DAILY MVI) TABLET (FP) PO SCH (11:26)
[2022-05-07] MEDS: CEFAZOLIN 1 GM in DEXTROSE 5%-WATER - 50 ML IVPB SCH ×2 (11:26→21:00)
[2022-05-07] MEDS: PANTOPRAZOLE SODIUM 40 MG VIAL IVPUSH SCH (11:26)
[2022-05-07] MEDS: CLOPIDOGREL BISULFATE 75 MG TABLET (FP) PO SCH (11:26)
[2022-05-07] MEDS: ASCORBIC ACID 250 MG TABLET (FP) PO SCH ×2 (11:26→20:59)
[2022-05-07] MEDS: metoPROLOL SUCCINATE 25 MG TAB.SR.24H (FP) PO SCH (13:11)
[2022-05-07] MEDS ORDERED: INSULIN (NOVOLOG) ASPART 100 UNITS/ML 10ML VIAL ONE (20:46)
[2022-05-07] MEDS ORDERED: MUPIROCIN 2% TOPICAL OINTMENT FOR DECOLONIZATION NS SCH (22:00)
[2022-05-07] MEDS ORDERED: CHLORHEXIDINE GLUCONATE 4% CLEANSER FOR DECOLONIZATION TP SCH (22:00)
[2022-05-08] MEDS: INSULIN SLIDING SCALE (NOVOLOG) 1 VIAL SQ SCH ×4 (06:50→21:54)
[2022-05-08] MEDS: AMINO ACIDS/PROTEIN HYDROLYS 30 ML LIQUID.PKT PO SCH ×3 (08:03→17:37)
[2022-05-08] MEDS: metoPROLOL SUCCINATE 25 MG TAB.SR.24H (FP) PO SCH (09:42)
[2022-05-08] MEDS: MULTIVITAMINS (DAILY MVI) TABLET (FP) PO SCH (09:42)
[2022-05-08] MEDS: CEFAZOLIN 1 GM in DEXTROSE 5%-WATER - 50 ML IVPB SCH (09:42)
[2022-05-08] MEDS: CLOPIDOGREL BISULFATE 75 MG TABLET (FP) PO SCH (09:42)
[2022-05-08] MEDS: ASCORBIC ACID 250 MG TABLET (FP) PO SCH ×2 (09:42→21:54)
[2022-05-08] MEDS: PANTOPRAZOLE SODIUM 40 MG VIAL IVPUSH SCH (09:42)
[2022-05-08 09:53] LABS: HEMOGLOBIN 12.8 GM/dL (11.7-16.9); MCHC 32.1 g/dl (32.0-35.9); MEAN CELL VOLUME 87.3 fl (80-96); MEAN PLT VOLUME 8.8 fl (7.5-11.1); PLATELET COUNT 157 10^3/uL (134-434); RBC 4.59 M/mm3 (4.00-5.60); RDW 14.9 % (11.9-15.9); WHITE BLOOD COUNT 13.2 K/mm3 (4.0-10.0)
[2022-05-08] MEDS: AMPICILLIN NA/SULBACTAM NA 1.5 GM in SODIUM CHLORIDE 100 ML IVPB SCH ×2 (13:42→17:30)
[2022-05-09] MEDS: AMPICILLIN NA/SULBACTAM NA 1.5 GM in SODIUM CHLORIDE 100 ML IVPB SCH ×3 (02:00→17:16)
[2022-05-09] MEDS: INSULIN SLIDING SCALE (NOVOLOG) 1 VIAL SQ SCH ×4 (06:40→22:54)
[2022-05-09] MEDS: AMINO ACIDS/PROTEIN HYDROLYS 30 ML LIQUID.PKT PO SCH ×2 (08:27→17:20)
[2022-05-09 09:45] LABS: HEMATOCRIT 38.8 % (35.4-49); HEMOGLOBIN 12.5 GM/dL (11.7-16.9); MCHC 32.2 g/dl (32.0-35.9); MEAN CELL VOLUME 87.1 fl (80-96); MEAN PLT VOLUME 8.6 fl (7.5-11.1); PLATELET COUNT 165 10^3/uL (134-434); RBC 4.46 M/mm3 (4.00-5.60); RDW 15.5 % (11.9-15.9); WHITE BLOOD COUNT 7.8 K/mm3 (4.0-10.0)
[2022-05-09] MEDS: CLOPIDOGREL BISULFATE 75 MG TABLET (FP) PO SCH (09:51)
[2022-05-09] MEDS: ASCORBIC ACID 250 MG TABLET (FP) PO SCH ×2 (09:51→22:54)
[2022-05-09] MEDS: metoPROLOL SUCCINATE 25 MG TAB.SR.24H (FP) PO SCH (09:51)
[2022-05-09] MEDS: MULTIVITAMINS (DAILY MVI) TABLET (FP) PO SCH (09:51)
[2022-05-09] MEDS: PANTOPRAZOLE SODIUM 40 MG VIAL IVPUSH SCH (09:52)
[2022-05-09 10:05] LABS: ALBUMIN 1.4 g/dl (3.4-5.0); BLOOD UREA NITROGEN 63.4 mg/dL (7-18); CALCIUM 8.3 mg/dL (8.5-10.1)
[2022-05-09 10:08] LABS: CREATININE 2.2 mg/dL (0.55-1.3)
[2022-05-09 10:10] LABS: BILIRUBIN,TOTAL 0.6 mg/dL (0.2-1); TOT PROT 5.6 g/dl (6.4-8.2)
[2022-05-09 10:47] LABS: ANISOCYTOSIS 0; HELMET CELLS 0; HOWELL-JOLLY BODIES 0; MACROCYTOSIS 0; OVALOCYTE 0; ROULEAU 0; SICKELED CELLS 0; TARGET CELLS 0; TEAR DROP CELLS 0; TOXIC GRANULATION 0
[2022-05-09] MEDS ORDERED: AMPICILLIN NA/SULBACTAM NA 1.5 GM VIAL ONE (17:16)
[2022-05-09 18:38] VITALS: BMI 22.7
[2022-05-10] MEDS: AMPICILLIN NA/SULBACTAM NA 1.5 GM in SODIUM CHLORIDE 100 ML IVPB SCH ×3 (03:20→17:26)
[2022-05-10] MEDS: INSULIN SLIDING SCALE (NOVOLOG) 1 VIAL SQ SCH ×4 (06:08→23:13)
[2022-05-10 08:21] LABS: HEMOGLOBIN 12.3 GM/dL (11.7-16.9); MCHC 32.4 g/dl (32.0-35.9); MEAN CELL VOLUME 86.5 fl (80-96); MEAN PLT VOLUME 8.6 fl (7.5-11.1); PLATELET COUNT 181 10^3/uL (134-434); RDW 15.4 % (11.9-15.9); WHITE BLOOD COUNT 9.2 K/mm3 (4.0-10.0)
[2022-05-10] MEDS: AMINO ACIDS/PROTEIN HYDROLYS 30 ML LIQUID.PKT PO SCH ×2 (08:41→16:34)
[2022-05-10] MEDS: PANTOPRAZOLE SODIUM 40 MG VIAL IVPUSH SCH (11:25)
[2022-05-10] MEDS: VITAMIN B COMP W-C 1 EA TABLET (NEPHRO-VITE) PO SCH (11:26)
[2022-05-10] MEDS: CLOPIDOGREL BISULFATE 75 MG TABLET (FP) PO SCH (11:26)
[2022-05-10] MEDS: ZINC SULFATE 220 MG CAPSULE (FP) PO SCH (11:26)
[2022-05-10] MEDS: ASCORBIC ACID 250 MG TABLET (FP) PO SCH ×2 (11:26→23:13)
[2022-05-10] MEDS: metoPROLOL SUCCINATE 25 MG TAB.SR.24H (FP) PO SCH (11:26)
[2022-05-10] MEDS: MULTIVITAMINS (DAILY MVI) TABLET (FP) PO SCH (11:28)
[2022-05-11] MEDS ORDERED: AMPICILLIN NA/SULBACTAM NA 1.5 GM VIAL ONE (00:49)
[2022-05-11] MEDS: AMPICILLIN NA/SULBACTAM NA 1.5 GM in SODIUM CHLORIDE 100 ML IVPB SCH ×3 (02:58→16:58)
[2022-05-11] MEDS: INSULIN SLIDING SCALE (NOVOLOG) 1 VIAL SQ SCH ×4 (08:10→21:51)
[2022-05-11] MEDS: ZINC SULFATE 220 MG CAPSULE (FP) PO SCH (10:27)
[2022-05-11] MEDS: metoPROLOL SUCCINATE 25 MG TAB.SR.24H (FP) PO SCH (10:27)
[2022-05-11] MEDS: AMINO ACIDS/PROTEIN HYDROLYS 30 ML LIQUID.PKT PO SCH ×2 (10:27→16:58)
[2022-05-11] MEDS: PANTOPRAZOLE SODIUM 40 MG VIAL IVPUSH SCH (10:28)
[2022-05-11] MEDS: CLOPIDOGREL BISULFATE 75 MG TABLET (FP) PO SCH (10:29)
[2022-05-11] MEDS: ASCORBIC ACID 250 MG TABLET (FP) PO SCH ×2 (10:29→21:42)
[2022-05-11] MEDS: MULTIVITAMINS (DAILY MVI) TABLET (FP) PO SCH (10:29)
[2022-05-11] MEDS: VITAMIN B COMP W-C 1 EA TABLET (NEPHRO-VITE) PO SCH (10:29)
[2022-05-11 11:15] LABS: HEMATOCRIT 41.5 % (35.4-49); HEMOGLOBIN 13.2 GM/dL (11.7-16.9); MCHC 31.8 g/dl (32.0-35.9); MEAN CELL VOLUME 88.2 fl (80-96); MEAN PLT VOLUME 9.1 fl (7.5-11.1); PLATELET COUNT 207 10^3/uL (134-434); RBC 4.71 M/mm3 (4.00-5.60); RDW 15.9 % (11.9-15.9); WHITE BLOOD COUNT 9.9 K/mm3 (4.0-10.0)
[2022-05-12] MEDS: AMPICILLIN NA/SULBACTAM NA 1.5 GM in SODIUM CHLORIDE 100 ML IVPB SCH ×3 (01:10→17:10)
[2022-05-12] MEDS: INSULIN SLIDING SCALE (NOVOLOG) 1 VIAL SQ SCH ×4 (06:36→22:36)
[2022-05-12] MEDS: AMINO ACIDS/PROTEIN HYDROLYS 30 ML LIQUID.PKT PO SCH ×2 (09:12→17:10)
[2022-05-12] MEDS: VITAMIN B COMP W-C 1 EA TABLET (NEPHRO-VITE) PO SCH (09:13)
[2022-05-12] MEDS: ASCORBIC ACID 250 MG TABLET (FP) PO SCH ×2 (09:13→21:36)
[2022-05-12] MEDS: MULTIVITAMINS (DAILY MVI) TABLET (FP) PO SCH (09:13)
[2022-05-12] MEDS: CLOPIDOGREL BISULFATE 75 MG TABLET (FP) PO SCH (09:13)
[2022-05-12] MEDS: ZINC SULFATE 220 MG CAPSULE (FP) PO SCH (09:13)
[2022-05-12] MEDS: metoPROLOL SUCCINATE 25 MG TAB.SR.24H (FP) PO SCH (09:13)
[2022-05-12] MEDS: PANTOPRAZOLE SODIUM 40 MG VIAL IVPUSH SCH (09:14)
[2022-05-12 15:05] LABS: BASO % 0.5 % (0-2.0); EOS % 1.3 % (0-4.5); HEMATOCRIT 39.3 % (35.4-49); HEMOGLOBIN 12.4 GM/dL (11.7-16.9); LYMPH % 7.4 % (8-40); MCH 27.7 pg (25.7-33.7); MCHC 31.7 g/dl (32.0-35.9); MEAN CELL VOLUME 87.4 fl (80-96); MEAN PLT VOLUME 8.8 fl (7.5-11.1); MONO % 6.8 % (3.8-10.2); PLATELET COUNT 190 10^3/uL (134-434); RBC 4.49 M/mm3 (4.00-5.60); RDW 15.7 % (11.9-15.9)
[2022-05-12 15:06] LABS: WHITE BLOOD COUNT 10.7 K/mm3 (4.0-10.0)
[2022-05-12 15:28] LABS: CALCIUM 8.3 mg/dL (8.5-10.1)
[2022-05-12 15:29] LABS: ALBUMIN 1.5 g/dl (3.4-5.0); BLOOD UREA NITROGEN 79.6 mg/dL (7-18)
[2022-05-12 15:32] LABS: CREATININE 2.8 mg/dL (0.55-1.3)
[2022-05-12 15:33] LABS: BILIRUBIN,TOTAL 0.4 mg/dL (0.2-1); TOT PROT 6.3 g/dl (6.4-8.2)
[2022-05-12] MEDS ORDERED: INSULIN (NOVOLOG) ASPART 100 UNITS/ML 10ML VIAL ONE ×2 (17:06→17:21)
[2022-05-13] MEDS: AMPICILLIN NA/SULBACTAM NA 1.5 GM in SODIUM CHLORIDE 100 ML IVPB SCH ×3 (01:05→17:58)
[2022-05-13] MEDS: INSULIN SLIDING SCALE (NOVOLOG) 1 VIAL SQ SCH ×4 (06:27→22:00)
[2022-05-13] MEDS: AMINO ACIDS/PROTEIN HYDROLYS 30 ML LIQUID.PKT PO SCH ×2 (10:49→16:48)
[2022-05-13] MEDS: ZINC SULFATE 220 MG CAPSULE (FP) PO SCH (10:49)
[2022-05-13] MEDS: MULTIVITAMINS (DAILY MVI) TABLET (FP) PO SCH (10:49)
[2022-05-13] MEDS: CLOPIDOGREL BISULFATE 75 MG TABLET (FP) PO SCH (10:49)
[2022-05-13] MEDS: metoPROLOL SUCCINATE 25 MG TAB.SR.24H (FP) PO SCH (10:49)
[2022-05-13] MEDS: ASCORBIC ACID 250 MG TABLET (FP) PO SCH ×2 (10:49→21:55)
[2022-05-13] MEDS: VITAMIN B COMP W-C 1 EA TABLET (NEPHRO-VITE) PO SCH (10:49)
[2022-05-13] MEDS: PANTOPRAZOLE SODIUM 40 MG VIAL IVPUSH SCH (10:50)
[2022-05-13] MEDS: DEXTROSE 5%-WATER - 1,000 ML IV SCH (16:51)
[2022-05-13 16:56] LABS: ALBUMIN 1.5 g/dl (3.4-5.0); BLOOD UREA NITROGEN 82.4 mg/dL (7-18)
[2022-05-13 16:58] LABS: CREATININE 2.8 mg/dL (0.55-1.3)
[2022-05-13 17:00] LABS: BILIRUBIN,TOTAL 0.4 mg/dL (0.2-1); TOT PROT 6.3 g/dl (6.4-8.2)
[2022-05-14] MEDS: AMPICILLIN NA/SULBACTAM NA 1.5 GM in SODIUM CHLORIDE 100 ML IVPB SCH ×3 (01:30→17:14)
[2022-05-14] MEDS: INSULIN SLIDING SCALE (NOVOLOG) 1 VIAL SQ SCH ×4 (06:10→23:08)
[2022-05-14] MEDS: DEXTROSE 5%-WATER - 1,000 ML IV SCH ×2 (06:18→16:49)
[2022-05-14] MEDS: AMINO ACIDS/PROTEIN HYDROLYS 30 ML LIQUID.PKT PO SCH ×2 (08:20→17:14)
[2022-05-14] MEDS: PANTOPRAZOLE SODIUM 40 MG VIAL IVPUSH SCH (09:24)
[2022-05-14] MEDS: VITAMIN B COMP W-C 1 EA TABLET (NEPHRO-VITE) PO SCH (09:24)
[2022-05-14] MEDS: metoPROLOL SUCCINATE 25 MG TAB.SR.24H (FP) PO SCH (09:24)
[2022-05-14] MEDS: MULTIVITAMINS (DAILY MVI) TABLET (FP) PO SCH (09:24)
[2022-05-14] MEDS: ZINC SULFATE 220 MG CAPSULE (FP) PO SCH (09:24)
[2022-05-14] MEDS: CLOPIDOGREL BISULFATE 75 MG TABLET (FP) PO SCH (09:24)
[2022-05-14] MEDS: ASCORBIC ACID 250 MG TABLET (FP) PO SCH ×2 (09:24→23:05)
[2022-05-14 12:08] LABS: ALBUMIN 1.5 g/dl (3.4-5.0); BLOOD UREA NITROGEN 76.2 mg/dL (7-18); CALCIUM 7.9 mg/dL (8.5-10.1)
[2022-05-14 12:11] LABS: CREATININE 2.7 mg/dL (0.55-1.3)
[2022-05-14 12:13] LABS: BILIRUBIN,TOTAL 0.5 mg/dL (0.2-1); TOT PROT 5.9 g/dl (6.4-8.2)
[2022-05-15] MEDS: AMPICILLIN NA/SULBACTAM NA 1.5 GM in SODIUM CHLORIDE 100 ML IVPB SCH ×2 (01:36→09:05)
[2022-05-15] MEDS: INSULIN SLIDING SCALE (NOVOLOG) 1 VIAL SQ SCH ×4 (06:41→22:42)
[2022-05-15] MEDS: AMINO ACIDS/PROTEIN HYDROLYS 30 ML LIQUID.PKT PO SCH ×2 (09:06→16:50)
[2022-05-15] MEDS: ASCORBIC ACID 250 MG TABLET (FP) PO SCH ×2 (09:07→21:53)
[2022-05-15] MEDS: CLOPIDOGREL BISULFATE 75 MG TABLET (FP) PO SCH (09:07)
[2022-05-15] MEDS: MULTIVITAMINS (DAILY MVI) TABLET (FP) PO SCH (09:07)
[2022-05-15] MEDS: PANTOPRAZOLE SODIUM 40 MG VIAL IVPUSH SCH (09:07)
[2022-05-15] MEDS: VITAMIN B COMP W-C 1 EA TABLET (NEPHRO-VITE) PO SCH (09:07)
[2022-05-15] MEDS: metoPROLOL SUCCINATE 25 MG TAB.SR.24H (FP) PO SCH (09:07)
[2022-05-15] MEDS: ZINC SULFATE 220 MG CAPSULE (FP) PO SCH (09:08)
[2022-05-15] MEDS ORDERED: TAMSULOSIN HCL 0.4 MG CAP PO ONE (16:38)
[2022-05-15] MEDS: SODIUM CHLORIDE 0.45% 1,000 ML IV SCH (16:52)
[2022-05-15] MEDS: COLLAGENASE CLOSTRIDIUM HIST. 30 GRAMS TUBE TP SCH (16:55)
[2022-05-16] MEDS: INSULIN SLIDING SCALE (NOVOLOG) 1 VIAL SQ SCH ×4 (06:25→22:09)
[2022-05-16] MEDS: AMINO ACIDS/PROTEIN HYDROLYS 30 ML LIQUID.PKT PO SCH ×2 (08:16→17:03)
[2022-05-16] MEDS: AMOX TR/POT CLAV 500MG/125MG TABLETS (FP) PO SCH ×2 (08:16→17:03)
[2022-05-16] MEDS: TAMSULOSIN HCL 0.4 MG CAP PO SCH (08:16)
[2022-05-16] MEDS: PANTOPRAZOLE SODIUM 40 MG VIAL IVPUSH SCH (09:38)
[2022-05-16] MEDS: MULTIVITAMINS (DAILY MVI) TABLET (FP) PO SCH (09:38)
[2022-05-16] MEDS: ASCORBIC ACID 250 MG TABLET (FP) PO SCH ×2 (09:38→22:09)
[2022-05-16] MEDS: metoPROLOL SUCCINATE 25 MG TAB.SR.24H (FP) PO SCH (09:38)
[2022-05-16] MEDS: VITAMIN B COMP W-C 1 EA TABLET (NEPHRO-VITE) PO SCH (09:38)
[2022-05-16] MEDS: CLOPIDOGREL BISULFATE 75 MG TABLET (FP) PO SCH (09:38)
[2022-05-16] MEDS: COLLAGENASE CLOSTRIDIUM HIST. 30 GRAMS TUBE TP SCH (09:52)
[2022-05-16 10:25] LABS: HEMATOCRIT 36.2 % (35.4-49); HEMOGLOBIN 11.6 GM/dL (11.7-16.9); MCH 27.6 pg (25.7-33.7); MEAN CELL VOLUME 86.1 fl (80-96); MEAN PLT VOLUME 9.9 fl (7.5-11.1); PLATELET COUNT 148 10^3/uL (134-434); RBC 4.21 M/mm3 (4.00-5.60); WHITE BLOOD COUNT 11.4 K/mm3 (4.0-10.0)
[2022-05-16 11:03] LABS: CALCIUM 7.7 mg/dL (8.5-10.1)
[2022-05-16 11:04] LABS: ALBUMIN 1.6 g/dl (3.4-5.0); BLOOD UREA NITROGEN 73.6 mg/dL (7-18)
[2022-05-16 11:07] LABS: CREATININE 2.6 mg/dL (0.55-1.3)
[2022-05-16 11:08] LABS: BILIRUBIN,TOTAL 0.5 mg/dL (0.2-1)
[2022-05-16] MEDS ORDERED: INSULIN (NOVOLOG) ASPART 100 UNITS/ML 10ML VIAL ONE (11:33)
[2022-05-16] MEDS: SODIUM CHLORIDE 0.45% 1,000 ML IV SCH (18:08)
[2022-05-17] MEDS: INSULIN SLIDING SCALE (NOVOLOG) 1 VIAL SQ SCH ×4 (06:16→21:59)
[2022-05-17] MEDS: SODIUM CHLORIDE 0.45% 1,000 ML IV SCH ×3 (06:28→21:56)
[2022-05-17] MEDS: AMINO ACIDS/PROTEIN HYDROLYS 30 ML LIQUID.PKT PO SCH ×2 (08:57→18:27)
[2022-05-17] MEDS: AMOX TR/POT CLAV 500MG/125MG TABLETS (FP) PO SCH ×2 (08:58→18:27)
[2022-05-17] MEDS: TAMSULOSIN HCL 0.4 MG CAP PO SCH (08:58)
[2022-05-17] MEDS: PANTOPRAZOLE SODIUM 40 MG VIAL IVPUSH SCH (09:42)
[2022-05-17] MEDS: VITAMIN B COMP W-C 1 EA TABLET (NEPHRO-VITE) PO SCH (09:42)
[2022-05-17] MEDS: CLOPIDOGREL BISULFATE 75 MG TABLET (FP) PO SCH (09:42)
[2022-05-17] MEDS: COLLAGENASE CLOSTRIDIUM HIST. 30 GRAMS TUBE TP SCH (09:43)
[2022-05-17] MEDS: MULTIVITAMINS (DAILY MVI) TABLET (FP) PO SCH (09:44)
[2022-05-17] MEDS: metoPROLOL SUCCINATE 25 MG TAB.SR.24H (FP) PO SCH (09:45)
[2022-05-17] MEDS: ASCORBIC ACID 250 MG TABLET (FP) PO SCH ×2 (09:45→21:59)
[2022-05-17 11:12] LABS: CHLORIDE 106 mmol/L (98-107); SODIUM 132 mmol/L (136-145)
[2022-05-17 11:14] LABS: CO2 14 mmol/L (21-32); GLUCOSE,RANDOM 101 mg/dL (74-106)
[2022-05-17 11:17] LABS: CREATININE 1.3 mg/dL (0.55-1.3)
[2022-05-17 11:38] LABS: ANION GAP 12 MMOL/L (8-16); CALCIUM 5.4 mg/dL (8.5-10.1)
[2022-05-17] MEDS ORDERED: CALCIUM GLUCONATE IN NACL 1 GM/50 ML BAG IVPB ONE (13:40)
[2022-05-17] MEDS: KCL 10 MEQ IVPB 10 MEQ/100 ML INFUS.BAG IVPB SCH ×2 (14:01→16:47)
[2022-05-17 16:00] LABS: ALBUMIN 1.6 g/dl (3.4-5.0)
[2022-05-17 16:03] LABS: CREATININE 1.9 mg/dL (0.55-1.3)
[2022-05-17 16:05] LABS: BILIRUBIN,TOTAL 0.4 mg/dL (0.2-1); TOT PROT 5.9 g/dl (6.4-8.2)
[2022-05-17 16:30] LABS: CALCIUM 7.7 mg/dL (8.5-10.1)
[2022-05-18] MEDS: INSULIN SLIDING SCALE (NOVOLOG) 1 VIAL SQ SCH ×3 (06:31→16:49)
[2022-05-18 07:53] VITALS: PULSE 96
[2022-05-18] MEDS ORDERED: INSULIN (NOVOLOG) ASPART 100 UNITS/ML 10ML VIAL ONE (07:59)
[2022-05-18] MEDS: AMINO ACIDS/PROTEIN HYDROLYS 30 ML LIQUID.PKT PO SCH ×2 (09:58→16:49)
[2022-05-18] MEDS: PANTOPRAZOLE SODIUM 40 MG VIAL IVPUSH SCH (09:59)
[2022-05-18] MEDS: VITAMIN B COMP W-C 1 EA TABLET (NEPHRO-VITE) PO SCH (09:59)
[2022-05-18] MEDS: metoPROLOL SUCCINATE 25 MG TAB.SR.24H (FP) PO SCH (09:59)
[2022-05-18] MEDS: CLOPIDOGREL BISULFATE 75 MG TABLET (FP) PO SCH (09:59)
[2022-05-18] MEDS: TAMSULOSIN HCL 0.4 MG CAP PO SCH (09:59)
[2022-05-18] MEDS: ASCORBIC ACID 250 MG TABLET (FP) PO SCH (09:59)
[2022-05-18] MEDS: AMOX TR/POT CLAV 500MG/125MG TABLETS (FP) PO SCH ×2 (09:59→16:49)
[2022-05-18] MEDS: MULTIVITAMINS (DAILY MVI) TABLET (FP) PO SCH (09:59)
[2022-05-18] MEDS: SODIUM CHLORIDE 0.45% 1,000 ML IV SCH (10:05)
[2022-05-18 12:35] VITALS: BP 114/64; RESP 16; TEMP 98.2
[2022-05-18] MEDS: COLLAGENASE CLOSTRIDIUM HIST. 30 GRAMS TUBE TP SCH (13:55)
[2022-05-18] MEDS ORDERED: DEXTROSE 5%-WATER - 1,000 ML with POTASSIUM CHLORIDE 10 MEQ IV SCH (14:15)
[2022-05-18] MEDS ORDERED: POTASSIUM CHLORIDE 10 MEQ in DEXTROSE 5%-WATER - 1,000 ML IV SCH (14:15)
== END 2022-05-18 22:00 | DRG 871 ==
LOC: JER 14:48 → JERBED 20:16 → JICU 21:25 → J6S 05-07 16:36
PROVIDERS: ADMIT Internal Medicine Pulmonary Disease; ATTEND Internal Medicine
DX: A41.59 Other Gram-negative sepsis (principal); G93.41 Metabolic encephalopathy; R65.21 Severe sepsis with septic shock; K72.00 Acute and subacute hepatic failure without coma; N17.9 Acute kidney failure, unspecified; N39.0 Urinary tract infection, site not specified; E87.0 Hyperosmolality and hypernatremia; E87.20 Acidosis, unspecified; I24.8 Other forms of acute ischemic heart disease; I69.354 Hemiplegia and hemiparesis following cerebral infarction affecting left non-dominant side; M62.82 Rhabdomyolysis; J44.9 Chronic obstructive pulmonary disease, unspecified; E11.65 Type 2 diabetes mellitus with hyperglycemia; I25.119 Atherosclerotic heart disease of native coronary artery with unspecified angina pectoris; Z95.5 Presence of coronary angioplasty implant and graft; R74.01 Elevation of levels of liver transaminase levels; R31.9 Hematuria, unspecified; B96.4 Proteus (mirabilis) (morganii) as the cause of diseases classified elsewhere; B95.2 Enterococcus as the cause of diseases classified elsewhere; Z95.1 Presence of aortocoronary bypass graft
CPT/HCPCS: 0241U-QW; 36415; 71045-TC-FY; 76775-TC; 80048; 80053; 81003; 82010; 82550; 82553; 82570; 82803; 82962; 83605; 83735; 84100; 84300; 84484; 85025; 85027; 85610; 85730; 87040; 87086; 87186; 93005; 93010; 93926-TC; 97116-GP; 97161-GP; 99291; C9803-CS; G0480; J1644; U0003; U0005